=== PATIENT | male | born 1975 | race American Indian/Alaskan Native ===

== ENCOUNTER 2016-12-19 09:41 | Emergency (ER) | payer SELFPAY ==
[2016-12-19 09:53] VITALS: BP 109/70
[2016-12-19] MEDS ORDERED: MOTRIN PO ONE (10:26)
--- NOTE | 2016-12-19 10:27 | Emergency Department Report ---
Chief Complaint: Chest Pain Stated Complaint: SORENESS/WEAK /FATIGUE - HPI History of Present Illness: 41-year-old male past medical history HIV not taking his HIV medicines self- admittedly. Patient states that for 1 week he has been feeling fever chills body aches runny nose and also intermittent chest pains - ROS Review of Systems: 1 week of malaise - Exam Vital Signs: Vital Signs 12/19/16 09:50 Temperature 98.3 F Pulse Rate 99 H Respiratory 18 Rate Blood Pressure 109/70 O2 Sat by Pulse 96 Oximetry Physical Exam: Heart S1-S2 lungs clear to auscultation MSE screening note: Focused history and physical exam performed. Due to findings the following was ordered: Screening Assessment/Plan/Differential Dx: Malaise,? Flu, chest pain 1- This initial assessment/diagnostic orders/clinical plan/ treatment(s) is/are subject to change based on pt's health status, clinical progression and re- assessment by fellow clinical providers in the ED. Further treatment and workup at subsequent clinical provers discretion. Patient/guardians urged not to elope from ED as their condition may be serious if not clinically assessed and managed. 2-this patient complains of intermittent chest pain 1 week we'll do a chest x- ray CK CK-MB troponin EKG is sinus rhythm 3-flu swab, urinalysis 4-pt states he is not taking his HARRT medicines, does not know his CD4 or viral load counts ED Disposition for MSE Condition: Stable
[2016-12-19 10:41] LABS: Hematocrit 39.5 % (35.5-45.6); Hemoglobin 12.8 gm/dl (11.8-15.2); Mean Corpuscular HGB Conc 32 % (32-34); Platelet Count 203 K/mm3 (140-440); Red Blood Count 6.06 M/mm3 (3.65-5.03); Red Cell Distribution Width 15.8 % (13.2-15.2); White Blood Count 6.2 K/mm3 (4.5-11.0)
[2016-12-19 10:42] LABS: Mean Corpuscular Hemoglobin 21 pg (28-32); Mean Corpuscular Volume 65 fl (84-94)
[2016-12-19 11:41] LABS: Creatine Kinase MB 1.1 ng/mL (0.0-4.0)
[2016-12-19 11:42] LABS: Basophils % (Manual) 0 % (0.0-1.8); Blastocytes % (Manual) 0 %; Hypochromasia 2+; Microcytosis 2+; Target Cells 1+
[2016-12-19 11:43] LABS: Anisocytosis 1+; Ovalocytes 1+; Poikilocytosis 1+
[2016-12-19 11:44] LABS: Alanine Aminotransferase 18 units/L (7-56); Albumin 4.1 g/dL (3.9-5); Alkaline Phosphatase 68 units/L (35-129); Anion Gap 19 mmol/L; BUN/Creatinine Ratio 9.28; Bilirubin,Total 0.8 mg/dL (0.1-1.2); Blood Urea Nitrogen 13 mg/dL (9-20); Calcium 8.6 mg/dL (8.4-10.2); Carbon Dioxide 23 mmol/L (22-30); Chloride 101.2 mmol/L (98-107); Creatine Kinase 198 units/L (55-170); Glucose 98 mg/dL (75-100); Potassium 4.2 mmol/L (3.6-5.0); Sodium 139 mmol/L (137-145); Total Protein 8.4 g/dL (6.3-8.2)
[2016-12-19 11:46] LABS: Bilirubin,Direct < 0.2 mg/dL (0-0.2)
[2016-12-19 11:53] LABS: Diff Status Complete
[2016-12-19 15:54] LABS: Bilirubin,Urine SM (Negative); Blood,Urine NEG (Negative); Ketones,Urine NEG (Negative); Leukocyte Esterase,Urine NEG (Negative); Mucus,Urine 2+ /HPF; Nitrite,Urine NEG (Negative); Urobilinogen,Urine < 2.0 mg/dL (<2.0)
--- NOTE | 2016-12-21 09:05 | XRay Report ---
CHEST 2 VIEWS: Compared to 10/04/16. HISTORY: HIV plus cough and fever. FINDINGS: Normal cardiomediastinal silhouette. Trachea is midline. No consolidation, pneumothorax or pleural effusion. IMPRESSION: No acute cardiopulmonary findings.
--- NOTE | 2016-12-23 01:05 | ED Elopement Review ---
ED Pt Elopement review - Results review Lab results: Laboratory Tests 12/19/16 12/19/16 12/19/16 10:29 10:29 10:29 WBC 6.2 RBC 6.06 H Hgb 12.8 Hct 39.5 MCV 65 L MCH 21 L MCHC 32 RDW 15.8 H Plt Count 203 [place] % (Auto) Slope Runner Add Manual Diff Complete Total Counted 100 Seg Neuts % (Manual) 67.0 Band Neutrophils % 2.0 Lymphocytes % (Manual) 15.0 Reactive Lymphs % (Man) 0 Monocytes % (Manual) 15.0 H Eosinophils % (Manual) 1.0 Basophils % (Manual) 0 Metamyelocytes % 0 Myelocytes % 0 Promyelocytes % 0 Blast Cells % 0 Nucleated RBC % Not Reportable Seg Neutrophils # Man 4.2 Band Neutrophils # 0.1 Lymphocytes # (Manual) 0.9 L Abs React Lymphs (Man) 0.0 Monocytes # (Manual) 0.9 H Eosinophils # (Manual) 0.1 Basophils # (Manual) 0.0 Metamyelocytes # 0.0 Myelocytes # 0.0 Promyelocytes # 0.0 Blast Cells # 0.0 WBC Morphology Not Reportable Hypersegmented Neuts Not Reportable Hyposegmented Neuts Not Reportable Hypogranular Neuts Not Reportable Smudge Cells Not Reportable Toxic Granulation Not Reportable Toxic Vacuolation Not Reportable Dohle Bodies Not Reportable Pelger-Huet Anomaly Not Reportable Yu Rods Not Reportable Platelet Estimate Appears normal Clumped Platelets Not Reportable Plt Clumps, EDTA Not Reportable Large Platelets Not Reportable Giant Platelets Not Reportable Platelet Satelliting Not Reportable Plt Morphology Comment Not Reportable RBC Morphology Not Reportable Dimorphic RBCs Not Reportable Polychromasia Not Reportable Hypochromasia 2+ Poikilocytosis 1+ Anisocytosis 1+ Microcytosis 2+ Macrocytosis Not Reportable Spherocytes Not Reportable Pappenheimer Bodies Not Reportable Sickle Cells Not Reportable Target Cells 1+ Tear Drop Cells Not Reportable Ovalocytes 1+ Helmet Cells Not Reportable [place] Bodies Not Reportable [place] Rings Not Reportable [place] Cells Not Reportable Bite Cells Not Reportable Crenated Cell Not Reportable Elliptocytes Not Reportable Acanthocytes (Spur) Not Reportable Rouleaux Not Reportable Hemoglobin C Crystals Not Reportable Schistocytes Not Reportable Malaria parasites Not Reportable Thaddeus Bodies Not Reportable Hem Pathologist Commnt No Sodium 139 Potassium 4.2 Chloride 101.2 Carbon Dioxide 23 Anion Gap 19 BUN 13 Creatinine 1.4 Estimated GFR > 60 BUN/Creatinine Ratio 9.28 Glucose 98 Lactic Acid Calcium 8.6 Total Bilirubin 0.8 Direct Bilirubin < 0.2 AST 29 ALT 18 Alkaline Phosphatase 68 Total Creatine Kinase 198 H 198 H CK-MB (CK-2) 1.1 CK-MB (CK-2) Rel Index 0.5 Troponin T < 0.010 Total Protein 8.4 H Albumin 4.1 Albumin/Globulin Ratio 1.0 Urine Color Urine Turbidity Urine pH Ur Specific [place] Urine Protein Urine Glucose (UA) Urine Ketones Urine Blood Urine Nitrite Urine Bilirubin Urine Ictotest Urine Urobilinogen Ur Leukocyte Esterase Urine WBC (Auto) Urine RBC (Auto) U Epithel Cells (Auto) Urine Mucus 12/19/16 12/19/16 10:29 15:30 WBC RBC Hgb Hct MCV MCH MCHC RDW Plt Count [place] % (Auto) Add Manual Diff Total Counted Seg Neuts % (Manual) Band Neutrophils % Lymphocytes % (Manual) Reactive Lymphs % (Man) Monocytes % (Manual) Eosinophils % (Manual) Basophils % (Manual) Metamyelocytes % Myelocytes % Promyelocytes % Blast Cells % Nucleated RBC % Seg Neutrophils # Man Band Neutrophils # Lymphocytes # (Manual) Abs React Lymphs (Man) Monocytes # (Manual) Eosinophils # (Manual) Basophils # (Manual) Metamyelocytes # Myelocytes # Promyelocytes # Blast Cells # WBC Morphology Hypersegmented Neuts Hyposegmented Neuts Hypogranular Neuts Smudge Cells Toxic Granulation Toxic Vacuolation Dohle Bodies Pelger-Huet Anomaly Yu Rods Platelet Estimate Clumped Platelets Plt Clumps, EDTA Large Platelets Giant Platelets Platelet Satelliting Plt Morphology Comment RBC Morphology Dimorphic RBCs Polychromasia Hypochromasia Poikilocytosis Anisocytosis Microcytosis Macrocytosis Spherocytes Pappenheimer Bodies Sickle Cells Target Cells Tear Drop Cells Ovalocytes Helmet Cells Jamie[place] Bodies [place] Rings [place] Cells Bite Cells Crenated Cell Elliptocytes Acanthocytes (Spur) Rouleaux Hemoglobin C Crystals Schistocytes Malaria parasites Thaddeus Bodies Hem Pathologist Commnt Sodium Potassium Chloride Carbon Dioxide Anion Gap BUN Creatinine Estimated GFR BUN/Creatinine Ratio Glucose Lactic Acid 0.8 Calcium Total Bilirubin Direct Bilirubin AST ALT Alkaline Phosphatase Total Creatine Kinase CK-MB (CK-2) CK-MB (CK-2) Rel Index Troponin T Total Protein Albumin Albumin/Globulin Ratio Urine Color Tasha Urine Turbidity Clear Urine pH 5.0 Ur Specific [place] 1.030 Urine Protein 30 mg/dl Urine Glucose (UA) Neg Urine Ketones Neg Urine Blood Neg Urine Nitrite Neg Urine Bilirubin Sm Urine Ictotest Negative Urine Urobilinogen < 2.0 Ur Leukocyte Esterase Neg Urine WBC (Auto) 3.0 Urine RBC (Auto) 3.0 U Epithel Cells (Auto) 1.0 Urine Mucus 2+ - Call Back decision Pt Call Back Decision: Pt to F/U with PMD
== END 2016-12-19 17:35 | disposition left against medical advice (07) ==
LOC: ED 09:41
DX: R50.9 Fever, unspecified (principal); M79.1 Myalgia; J34.89 Other specified disorders of nose and nasal sinuses; Z21 Asymptomatic human immunodeficiency virus [HIV] infection status
CPT/HCPCS: 36415; 71020; 80048; 80074; 81001; 82140; 82550; 82553; 84484; 85007; 85025; 87086; 87400; 93005; 93010

== ENCOUNTER 2017-01-24 07:26 | Emergency (ER) | payer SELFPAY ==
[2017-01-24 08:22] LABS: Basophils % (Auto) 0.7 % (0.0-1.8); Eosinophils % (Auto) 7.3 % (0.0-4.3); Hematocrit 33.8 % (35.5-45.6); Hemoglobin 10.8 gm/dl (11.8-15.2); Mean Corpuscular HGB Conc 32 % (32-34); Mean Corpuscular Hemoglobin 21 pg (28-32); Mean Corpuscular Volume 64 fl (84-94); Platelet Count 250 K/mm3 (140-440); Red Blood Count 5.25 M/mm3 (3.65-5.03); Red Cell Distribution Width 15.8 % (13.2-15.2); White Blood Count 7.2 K/mm3 (4.5-11.0)
--- NOTE | 2017-01-24 08:26 | XRay Report ---
ROUTINE CHEST, TWO VIEWS: HISTORY: Cough, fever. The trachea, heart, mediastinal contour, lung giles and bony thorax are unremarkable. IMPRESSION: Unremarkable chest x-ray. No significant change since 12/19/16.
[2017-01-24 08:31] LABS: Alanine Aminotransferase 19 units/L (7-56); Albumin 3.6 g/dL (3.9-5); Albumin/Globulin Ratio 0.9 %; Alkaline Phosphatase 76 units/L (35-129); Anion Gap 17 mmol/L; Bilirubin,Total 0.3 mg/dL (0.1-1.2); Blood Urea Nitrogen 13 mg/dL (9-20); Calcium 8.9 mg/dL (8.4-10.2); Carbon Dioxide 25 mmol/L (22-30); Glucose 88 mg/dL (75-100); Potassium 4.8 mmol/L (3.6-5.0); Sodium 142 mmol/L (137-145); Total Protein 7.4 g/dL (6.3-8.2)
[2017-01-24 08:41] LABS: Bilirubin,Direct < 0.2 mg/dL (0-0.2); Bilirubin,Indirect 0.1 mg/dL
[2017-01-24] MEDS ORDERED: PROVENTIL IH ONE ×2 (15:00→15:02)
[2017-01-24] MEDS ORDERED: TYLENOL/CODEINE PO ONE (17:12)
--- NOTE | 2017-01-24 17:49 | Emergency Department Report ---
HPI - General Chief Complaint: Upper Respiratory Infection Time Seen by Provider: 01/24/17 17:39 - HPI HPI: Patient is a 41-year-old male who presents to ED complaining of yellow to greenish to white mucus productive cough 4 weeks. Patient states about 4 weeks ago he began coughing and cough as gotten worse. Patient states to taking Mucinex with no relief. Patient reports feeling generalized body ache and feverish for the pass 4 days. Patient states he feels tired from all the coughing and pain with coughing. Signed patient states he has not taken extra vitamin C long time due to the fact that he has not been able to follow-up with Vamsi SIBLEY. Patient also states he is out of his pro-air inhaler. Patient denies fevers/chills/nausea/vomiting/shortness of breath/dizziness/ chest pain/headache or any other problems. ED Past Medical Hx - Past Medical History Hx Asthma: Yes (Chronic Bronchitis) Hx HIV: Yes (not taking meds) Additional medical history: CHRONIC BRONCHITIS - Surgical History Additional Surgical History: left knee surgery, Left 4th toe amputee - Social History Smoking Status: Current Every Day Smoker Substance Use Type: Alcohol - Medications Home Medications: Home Medications Medication Instructions Recorded Confirmed Last Taken Type ALBUTEROL Inhaler [ProAir HFA 2 puff IH QID PRN #1 inhalation 01/24/17 Unknown Rx Inhaler] Acetamin/Codeine 120-12Mg/5 ml 5 ml PO TID PRN #60 ml 01/24/17 Unknown Rx [Tylenol/Codeine] Emtricitabine/Tenofovir [Truvada 1 each PO DAILY #40 tablet 01/24/17 Unknown Rx 100 mg-150 mg Tablet] Levofloxacin [Levaquin] 750 mg PO QDAY #7 tablet 01/24/17 Unknown Rx ED Review of Systems ROS: Stated complaint: COUGH/BACK PAIN /CHEST PAIN/ Other details as noted in HPI Constitutional: denies: chills, fever Eyes: denies: eye pain, eye discharge, vision change ENT: denies: ear pain, throat pain Respiratory: cough. denies: shortness of breath, wheezing Cardiovascular: denies: chest pain, palpitations Endocrine: no symptoms reported Gastrointestinal: denies: abdominal pain, nausea, vomiting, diarrhea, constipation, hematemesis, hematochezia Genitourinary: denies: urgency, dysuria, frequency, hematuria, testicular pain, testicular mass Musculoskeletal: denies: back pain, joint swelling, arthralgia Skin: denies: rash, lesions Neurological: denies: headache, weakness, paresthesias Psychiatric: denies: anxiety, depression, auditory hallucinations, suicidal thoughts Hematological/Lymphatic: denies: easy bleeding, easy bruising, swollen glands Physical Exam - Physical Exam Vital Signs: Vital Signs 01/24/17 01/24/17 01/24/17 07:35 14:52 15:00 Temperature 99.6 F Pulse Rate 96 H 77 Respiratory 20 12 Rate Blood Pressure 99/55 107/62 O2 Sat by Pulse 97 96 100 Oximetry 01/24/17 01/24/17 15:13 17:24 Temperature 98.5 F Pulse Rate Respiratory 22 Rate Blood Pressure O2 Sat by Pulse Oximetry Physical Exam: GENERAL: Alert and oriented x3, no apparent distress, Normal Gait, atraumatic. HEAD: Head is normocephalic and a-traumatic. EYES: Extra ocular muscles are intact. Pupils are equal, round, and reactive to light and accommodation. EARS: symetrical, atraumatic, non tender, ear canal clear and moderate cerumen, tympanic membrance non inflamed. gross auditory nml bilaterally. NOSE: Nose symetrical, Nontender,Nares appeared normal. MOUTH:Mouth is well hydrated and without lesions. Tonsils nonerythematous or swollen, Uvula midline, Tongue not elevated. Mucous membranes are moist. Posterior pharynx clear, no exudate or lesions. Patent airways. NECK: Supple. Non edematous, No carotid bruits. No lymphadenopathy or thyromegaly. LUNGS: Symetrical with respiration, No wheezing, no rales or crackles, CTAB. HEART: S1, S2 present, regular rate and rhythm without murmur, no rubs, no gallops. ABDOMEN: No organomegaly was noted,Positive bowel sounds, soft, and non- distended. . Nontender to palpation on all Quadrants, NO CVA tenderness. EXTREMITIES/MUSCULOSKELETAL: No cyanosis, clubbing, rash, lesions or edema. Full ROM bilaterally. UE/LE Pulses 2+ bilaterally. NEUROLOGIC: No focal Deficit, Cranial nerves II through XII are grossly intact. No loss of sensation, No facial droop, PSYCHIATRIC: Mood is congruent with affect, denies suicidal or homicidal ideations. SKIN: Warm and dry, No lesions, No ulceration or induration present. ED Course Vital Signs 01/24/17 01/24/17 01/24/17 07:35 14:52 15:00 Temperature 99.6 F Pulse Rate 96 H 77 Respiratory 20 12 Rate Blood Pressure 99/55 107/62 O2 Sat by Pulse 97 96 100 Oximetry 01/24/17 01/24/17 15:13 17:24 Temperature 98.5 F Pulse Rate Respiratory 22 Rate Blood Pressure O2 Sat by Pulse Oximetry ED Medical Decision Making - Lab Data Result diagrams: 01/24/17 07:56 01/24/17 07:56 - Medical Decision Making 41-year-old male with a history of HIV presents with upper respiratory infection ED course: Patient received 10 ml of Tylenol with Codeine. Patient received one respiratory treatment. Patient reports feeling better Discussed with patient to follow-up with Vamsi SIBLEY for his HIV management. Vital signs stable. O2 sat at 100%. Patient is not in any acute respiratory distress. CBC normal limits, BMP within normal limits, chest x-ray: No significant changes are unremarkable chest x-ray. Discussed the patient antibiotic therapy for empirical Treatment Tylenol with Codeine for cough and pain. Discussed refill medication on its albuterol inhaler, and Truvada. Discussed the patient to follow up with primary care physician is referred. Patient reports he understands and will comply to follow-up. Critical care attestation.: If time is entered above; I have spent that time in minutes in the direct care of this critically ill patient, excluding procedure time. ED Disposition Clinical Impression: Bronchitis URI (upper respiratory infection) Qualifiers: URI type: unspecified URI Qualified Code(s): J06.9 - Acute upper respiratory infection, unspecified Disposition: DISCHARGED TO HOME OR SELFCARE Is pt being admited?: No Does the pt Need Aspirin: No Condition: Stable Instructions: Upper Respiratory Infection (ED), Chronic Bronchitis (ED) Additional Instructions: Follow-up with primary care physician as referred. Follow-up with Vamsi SIBLEY to continue care. Take your medication as prescribed. Prescriptions: Acetamin/Codeine 120-12Mg/5 ml [Tylenol/Codeine] 5 ml PO TID PRN #60 ml PRN Reason: Pain ALBUTEROL Inhaler [ProAir HFA Inhaler] 2 puff IH QID PRN #1 inhalation PRN Reason: Shortness Of Breath Emtricitabine/Tenofovir [Truvada 100 mg-150 mg Tablet] 1 each PO DAILY #40 tablet Levofloxacin [Levaquin] 750 mg PO QDAY #7 tablet Referrals: PRIMARY CARE, [Primary Care Provider] - 3-5 Days [facility] [Outside] - 3-5 Days [facility] [Outside] - 3-5 Days [facility] [Outside] - 3-5 Days [facility] [Outside] - 3-5 Days Forms: Work/School Release Form(ED) Time of Disposition: 18:04
[2017-01-24 18:39] VITALS: BP 114/72
== END 2017-01-24 18:39 | disposition home or self-care (01) ==
LOC: ED 07:26
DX: J40 Bronchitis, not specified as acute or chronic (principal); J45.909 Unspecified asthma, uncomplicated; F17.200 Nicotine dependence, unspecified, uncomplicated; Z21 Asymptomatic human immunodeficiency virus [HIV] infection status
CPT/HCPCS: 36415; 71020; 80048; 80074; 82140; 85025

== ENCOUNTER 2018-04-11 16:06 | Emergency (ER) | payer MEDICAID ==
[2018-04-11] MEDS ORDERED: NACL 0.9% 500 ML 500 ML IV ONE (16:31)
[2018-04-11] MEDS ORDERED: TYLENOL PO ONE (16:32)
[2018-04-11 17:08] LABS: Basophils # (Auto) 0.1 K/mm3 (0.0-0.1); Basophils % (Auto) 0.5 % (0.0-1.8); Eosinophils # (Auto) 0.3 K/mm3 (0.0-0.4); Eosinophils % (Auto) 2.3 % (0.0-4.3); Hematocrit 35.5 % (35.5-45.6); Hemoglobin 11.2 gm/dl (11.8-15.2); Lymphocytes # (Auto) 0.4 K/mm3 (1.2-5.4); Lymphocytes % (Auto) 3.2 % (13.4-35.0); Mean Corpuscular HGB Conc 31 % (32-34); Monocytes # (Auto) 1.2 K/mm3 (0.0-0.8); Monocytes % (Auto) 8.5 % (0.0-7.3); Platelet Count 281 K/mm3 (140-440); Red Blood Count 5.45 M/mm3 (3.65-5.03); Red Cell Distribution Width 17.3 % (13.2-15.2)
[2018-04-11 17:10] LABS: Mean Corpuscular Hemoglobin 20 pg (28-32); Mean Corpuscular Volume 65 fl (84-94)
--- NOTE | 2018-04-11 17:18 | XRay Report ---
FINAL REPORT PROCEDURE: Chest. TECHNIQUE: PA view. HISTORY: Shortness of breath and fatigue. COMPARISON: No prior studies are available for comparison. FINDINGS: The heart and mediastinum appear normal. The lungs are clear and well expanded. There are no pleural effusions. The soft tissues and regional skeleton are unremarkable. IMPRESSION: Normal study.
[2018-04-11 17:19] LABS: INR 0.94 (0.87-1.13)
[2018-04-11 17:35] LABS: Alanine Aminotransferase 39 units/L (7-56); BUN/Creatinine Ratio 19; Blood Urea Nitrogen 21 mg/dL (9-20); Calcium 9.6 mg/dL (8.4-10.2); Hemolysis Index 3
[2018-04-11 20:40] VITALS: BP 113/67
[2018-04-11 21:00] LABS: Bilirubin,Urine NEG (Negative); Blood,Urine NEG (Negative); Color,Urine Yellow (Yellow); Mucus,Urine FEW /HPF; Protein,Urine <15 mg/dL mg/dL (Negative); WBC,Urine < 1.0 /HPF (0.0-6.0)
== END 2018-04-11 17:29 | disposition left against medical advice (07) ==
LOC: ED 16:06
DX: R06.02 Shortness of breath (principal); R53.83 Other fatigue; F17.200 Nicotine dependence, unspecified, uncomplicated; Z53.21 Procedure and treatment not carried out due to patient leaving prior to being seen by health care provider
CPT/HCPCS: 36415; 71045; 80053; 81001; 82140; 82805; 85025; 85610; 87040; 87086; 93005; 93010